=== PATIENT | female | born 1950 | race Caucasian/White ===

== ENCOUNTER → 2018-11-26 | Outpatient (CLI) | payer MEDICARE ==
[~2018-11-26] MED LIST: ASPI81CH PO; FISH1000 PO; Super B Comple1 EAC2 PO; VITAMIN D32000 UNIT PO
[2018-11-28 14:07] LABS: HPV 16 Negative (Negative); HPV 18 Negative (Negative); HPV OTHER HR TYPES Negative (Negative)
== END | disposition home or self-care (01) ==
LOC: LAB SHORT 17:41 → LAB 17:41
PROVIDERS: Obstetrics & Gynecology Gynecology
DX: Z12.4 Encounter for screening for malignant neoplasm of cervix (principal)
CPT/HCPCS: 87624; G0123

== ENCOUNTER 2019-01-21 08:34 | Day surgery (SDC) | payer MEDICARE | END 2019-01-21 22:45 | disposition home or self-care (01) | LOC: MOI MAM 08:34 | DX: R92.0 Mammographic microcalcification found on diagnostic imaging of breast (principal); R92.8 Other abnormal and inconclusive findings on diagnostic imaging of breast | CPT/HCPCS: 19081; 88305 ==

== ENCOUNTER 2019-02-20 08:24 | Day surgery (SDC) | payer MEDICARE | END 2019-02-21 01:58 | disposition home or self-care (01) | LOC: MOI MAM 08:24 | PROC: BH41ZZZ Ultrasonography of Left Breast (ICD-10-PCS; principal; 2019-02-20) | DX: N60.89 Other benign mammary dysplasias of unspecified breast (principal); R92.8 Other abnormal and inconclusive findings on diagnostic imaging of breast | CPT/HCPCS: 19281 ==

== ENCOUNTER 2019-02-25 11:09 | Day surgery (SDC) | payer MEDICARE ==
[~2019-02-25] VITALS: Ht 165.1 cm; Wt 79.5 kg
--- NOTE | 2019-02-25 12:46 | NUR ---
02/25/19 1245 Shahla Monsivais 4 IV ATTEMPTS FIRST IN RIGHT HAND INFILTRATED SECOND IN RIGHT WRIST SUCCESSFUL
== END 2019-02-25 14:29 | disposition home or self-care (01) ==
LOC: ORSCSDS 11:09
PROVIDERS: Surgery
PROC: 0HBU0ZX Excision of Left Breast, Open Approach, Diagnostic (ICD-10-PCS; principal; 2019-02-25 12:30)
DX: N60.92 Unspecified benign mammary dysplasia of left breast (principal)
CPT/HCPCS: 88307; J0690; J1100; J1885; J2001; J2250; J2405; J2704; J3010; J7120

== ENCOUNTER → 2024-12-29 | Outpatient (CLI) | payer OTHER ==
[2024-12-29 15:14] LABS: Bacterial Vaginosis PCR Negative (NEGATIVE); Candida Group, PCR NOT DETECTED (NOT DETECT); Candida glabrata-krusei, PCR NOT DETECTED (NOT DETECT)
== END | disposition home or self-care (01) ==
LOC: LAB 09:59 → LAB SHORT 09:59
PROVIDERS: Advanced Practice Midwife
DX: N76.0 Acute vaginitis (principal)
CPT/HCPCS: 81515